=== PATIENT | male | born 1970 | race African-American/Black ===

== ENCOUNTER 2022-10-09 13:37 | Outpatient (REF) | payer MEDICARE, MEDICAID, SELFPAY ==
--- NOTE | ~2022-10-09 | XR_ITS ---
EXAMINATION: XR ABDOMEN KUB CLINICAL INDICATION: Abdominal pain, predominantly left-sided. COMPARISON: None available. TECHNIQUE: AP view of the abdomen. FINDINGS: Thoracolumbar dextroscoliosis noted. Spondylitic changes seen at vertebral endplates. The bowel gas pattern is nonobstructive. Moderate colonic fecal material seen throughout the colon. There are no appreciable abnormal calcifications, particularly at the level of the kidneys as noted on this evaluation. There is some obscuration of the right renal shadow related to fecal densities. XR/XR KUB IMPRESSION: Nonobstructive bowel gas pattern without any definite evidence for free air. No distinct abnormal calcifications. If obstructive uropathy is a consideration, CT stone study could be helpful toward further evaluation.
== END 2022-10-09 13:38 | disposition home or self-care (01) ==
LOC: HO.HHCX 13:37
PROVIDERS: Visit Provider Student in an Organized Health Care Education/Training Program
DX: R10.9 Unspecified abdominal pain (principal)
CPT/HCPCS: 74018

== ENCOUNTER 2023-02-11 15:28 | Outpatient (REF) | payer MEDICARE, MEDICAID, SELFPAY ==
[2023-02-11 17:32] LABS: MANUAL DIFF FLAG NO
[2023-02-11 17:39] LABS: Appearance Urine Clear; Color Urine Yellow; Glucose Urine UA Negative (Negative); Leukocyte Esterase Urine Negative (Negative); Nitrite Urine Negative (Negative); PH 5.5 (5.0-9.0); Specific Gravity - Urine 1.025 (1.005-1.025); UMIC TRIGGER UA YES; Urine Blood Small (1+) (Negative); Urine Ketones Trace mg/dL (Negative); Urine Protein Trace mg/dL (Neg-Trace)
[2023-02-11 17:47] LABS: Bacteria Urine None Seen (None Seen); Hyaline Casts Urine 0-2 /LPF (0-2); Squamous Epithelial Cell Urine 0-2 /HPF (0-2); WBC Urine 0-5 /HPF (0-5)
[2023-02-11 17:56] LABS: Basophils Percent Auto 0.7 % (0-2); Eosinophils Absolute Auto 0.4 X10*3/uL (0.0-0.4); Eosinophils Percent Auto 7.3 % (0-4); Hematocrit 47.1 % (42.0-52.0); Hemoglobin 15.3 g/dl (14.0-18.0); Imm Gran Abs Auto 0.03 X10*3/uL (0.00-0.03); Imm Gran Pct Auto 0.5 % (0.0-0.4); Lymphocytes Absolute Auto 1.8 X10*3/uL (1.2-4.9); Lymphocytes Percent Auto 31.9 % (20-40); Mean Corpuscular HGB Conc 32.5 g/dl (31.0-36.0); Mean Corpuscular Hemoglobin 30.2 pg (27.0-33.0); Mean Corpuscular Volume 93.1 fL (80.0-98.0); Mean Platelet Volume 10.9 fL (9.4-12.4); Monocytes Absolute Auto 0.7 X10*3/uL (0.1-1.2); Neutrophils Absolute Auto 2.7 x10*3/uL (2.0-8.3); Neutrophils Percent Auto 47.6 % (45-73); Platelet Count 295 X10*3/uL (160-400); Red Blood Count 5.06 X10*6/uL (4.60-5.80); Red Cell Distribution Width 13.9 % (11.0-16.0); White Blood Count 5.8 X10*3/uL (4.8-10.8)
[2023-02-11 18:11] LABS: Anion Gap 16 (12-20); Blood Urea Nitrogen 11 mg/dL (9-16); Calcium 10.4 mg/dL (8.4-10.2); Carbon Dioxide 28 mmol/L (22-29); Chloride 104 mmol/L (96-108); Estimated Glomerular Filt Rate > 60; Glucose Random 98 mg/dL (60-115); Potassium 4.4 mmol/L (3.3-5.1); Sodium 144 mmol/L (135-145)
[2023-02-11 18:27] LABS: Vitamin D 25-OH Total 22.5 ng/mL (>30)
[2023-02-11 18:28] LABS: Prostate Specific Antigen 0.53 ng/mL (<0.05-4.0)
[2023-02-12 08:24] LABS: HBS Num1 1.02 mIU/mL (0-7.99); HBc Num1 0.17 S/CO (0.00-0.79); HBsAGNum1 0.37 S/CO (0.00-0.99); Hepatitis A Antibody IgM 0.17 Index (0-0.79); Hepatitis B Core Antibody Nonreactive (Nonreactive); Hepatitis B Surface Antigen Negative (Negative); ~HepC Num1 0.23 S/CO (0.00-0.79); ~Hepatitis A Antibody IgM Nonreactive (Nonreactive); ~Hepatitis B Surface Antibody NONREACTIVE (Nonreactive); ~Hepatitis C Antibody Nonreactive (Nonreactive)
== END 2023-02-11 15:29 | disposition home or self-care (01) ==
LOC: HO.CHCLDS 15:28
PROVIDERS: Visit Provider Internal Medicine
DX: Z12.5 Encounter for screening for malignant neoplasm of prostate (principal); R10.2 Pelvic and perineal pain; E66.01 Morbid (severe) obesity due to excess calories; E78.5 Hyperlipidemia, unspecified; I10 Essential (primary) hypertension
CPT/HCPCS: 36415; 80048; 81001; 82306; 84153; 85025; 86704; 86706; 86709; 86803; 87340

== ENCOUNTER 2023-02-13 11:21 | Outpatient (REF) | payer MEDICARE, MEDICAID, SELFPAY ==
[2023-02-13 14:25] LABS: Urine Cytology See Pathology rpt
== END 2023-02-13 11:22 | disposition home or self-care (01) ==
LOC: HO.CHCLDS 11:21
PROVIDERS: Visit Provider Internal Medicine
DX: R31.29 Other microscopic hematuria (principal)
CPT/HCPCS: 87086; 88112

== ENCOUNTER 2023-02-26 09:49 | Outpatient (REF) | payer MEDICARE, MEDICAID, SELFPAY ==
--- NOTE | ~2023-02-26 | US_ITS ---
EXAMINATION: US RETROPERITONEAL LIMITED (RENAL ONLY) CLINICAL INFORMATION: Microscopic hematuria. COMPARISON: X-ray abdomen KUB 10/09/2022. TECHNIQUE: Real-time imaging of the kidneys. Limited visualization due to bowel gas. FINDINGS: RIGHT KIDNEY: 10.3 x 5.7 x 5.5 cm (SAG x AP x TRV). No hydronephrosis. Renal cortical thickness is normal. Right renal midpole 0.9 cm non-shadowing echogenic focus, possibly representing a renal calculus. Right renal 0.8 x 0.8 x 0.9 cm hyperechoic, non-shadowing mass, possibly representing an angiomyolipoma. Limited visualization. LEFT KIDNEY: 11.0 x 6.8 x 6.5 cm (SAG x AP x TRV). No hydronephrosis. No renal calculi. Renal cortical thickness is normal. Limited visualization. US/US renal BI IMPRESSION: Right renal midpole 0.9 cm non-shadowing echogenic focus, possibly representing a renal calculus. No hydronephrosis. Right renal 0.9 cm hyperechoic, non-shadowing mass, possibly representing an angiomyolipoma. Dedicated CT scan with images obtained precontrast and postcontrast administration recommended for further evaluation.
== END 2023-02-26 09:50 | disposition home or self-care (01) ==
LOC: HO.US 09:49
PROVIDERS: PCP Internal Medicine; Visit Provider Internal Medicine
DX: R31.29 Other microscopic hematuria (principal)
CPT/HCPCS: 76775

== ENCOUNTER 2023-04-11 08:19 | Outpatient (REF) | payer MEDICARE, MEDICAID, SELFPAY ==
--- NOTE | ~2023-04-11 | CT_ITS ---
EXAMINATION: CT ABDOMEN AND PELVIS WITHOUT AND WITH CONTRAST CLINICAL INFORMATION: Renal mass. COMPARISON: Renal ultrasound 02/26/2023. TECHNIQUE: Multidetector volumetric imaging was performed of the abdomen and pelvis before and after the IV administration of 85 mL of Omnipaque 350 intravenous contrast. Sagittal and coronal reformatted images were obtained on the technologist's workstation. This CT examination was performed using dose optimization techniques as appropriate, variously including the following: *Automated exposure control *Adjustment of mA and/or kV according to patient size (this includes techniques or standardized protocols for targeted exams where dose is matched to indication/reason for exam; i.e. extremities or head) *Use of iterative reconstruction technique DLP: 642 mGy-cm FINDINGS: LUNG BASES: The visualized lung bases are unremarkable. LIVER, GALLBLADDER, AND BILIARY TREE: The liver is normal in size, shape, and attenuation. No focal hepatic lesion or biliary ductal dilatation is present. The gallbladder is unremarkable with no evidence of radiopaque gallstones, gallbladder wall thickening, or obvious pericholecystic inflammatory changes. PANCREAS: No discrete mass. No ductal dilatation. SPLEEN: Unremarkable ADRENAL GLANDS: No adrenal mass. KIDNEYS AND URETERS: 2 mm nonobstructing calculus lower pole right kidney 8.2 cm from posterolateral skin surface. Probable punctate calculus in the upper pole right kidney as well. No definite calculi in the left kidney. Nephrograms are symmetric. No hydroureteronephrosis. There is no focal mass to correlate with the finding on recent ultrasound. This may have been a prominent papilla. There is a tiny cyst in the lower pole right kidney for which no imaging follow-up is recommended. BLADDER: Question small mass midline bladder over the prostate. GASTROINTESTINAL TRACT: Small and large bowel are normal in caliber. The appendix appears normal. Mild colonic diverticulosis. ABDOMINAL WALL: No significant hernia is appreciated. LYMPH NODES: No lymphadenopathy. VASCULAR: No aortic aneurysm. PELVIC VISCERA: The prostate measures 4.1 x 2.5 x 3.4 cm, approximately 17 mL. Question median lobe hypertrophy. OSSEOUS STRUCTURES: Degenerative changes in the spine. CT/CT abdomen pelvis wo/w IV con IMPRESSION: No suspicious renal mass. The finding on recent ultrasound was likely a visually prominent renal papilla. Nonobstructing right renal calculi. No hydroureteronephrosis. Questionable 1 cm posterior bladder mass could represent median hypertrophy of the prostate however the rest of the prostate gland is not enlarged and total prostate volume is less than 25 mL. Recommend cystoscopy to exclude a true bladder wall mass. Fleischner guidelines were followed.
[2023-04-11] MEDS: iohexoL 350 MG/ML 100 ML INFUS..BTL 85 ML IV (08:55)
[2023-04-11 12:57] LABS: Creatinine POC 0.6 mg/dL (0.5-1.4); GFR POC > 60
== END 2023-04-11 08:20 | disposition home or self-care (01) ==
LOC: HO.CT 08:19
PROVIDERS: PCP Internal Medicine; Visit Provider Internal Medicine
DX: N28.89 Other specified disorders of kidney and ureter (principal)
CPT/HCPCS: 74178; 82565; Q9967

== ENCOUNTER 2024-06-11 14:19 | Outpatient (REF) | payer MEDICARE, MEDICAID, SELFPAY ==
[2024-06-11 17:56] LABS: Anion Gap 12 (12-20); Blood Urea Nitrogen 16 mg/dL (9-16); Calcium 9.6 mg/dL (8.4-10.2); Carbon Dioxide 24 mmol/L (22-29); Chloride 107 mmol/L (96-108); Estimated Glomerular Filt Rate > 60; Glucose Random 96 mg/dL (60-115); Potassium 3.8 mmol/L (3.3-5.1); Sodium 139 mmol/L (135-145)
--- OUTSIDE RECORDS SUMMARY | 2024-06-11 18:10 | XMS_ITS | Clinical Summary ---
Author Organization [employer] Address [address] [facility] [address] [place] [address] Care Team Providers Care Clipper Counters Name Role Phone Manny Shankar MD Primary Care Prov ider Allergies No known active allergies Medications sucralfate (Carafate) 1 g tablet Take 1 tablet (1 g) by mouth every 8 (eight) hours. 120 tablet 3 09/04/19 23 Active tadalafil (Cialis) 10 MG tablet Take 1 tablet (10 mg) by mouth if needed each day for erectile dysfunction. 10 tablet 1 09/04/19 23 Active nicotine (Nicoderm CQ) 21 MG/24HR patchIndications :Nicotine use Place 1 patch on the skin 1 (one) time each day at the same time for 28 days. 28 patch 09/04/19 23 Active fexofenadine (Melonie) 180 MG tablet Take 1 tablet (180 mg) by mouth if needed each day (Allergies). 30 tablet 3 02/12/20 23 Active fluticasone (Flonase) 50 MCG/ACT nasal sprayIndications :Seasonal allergies ADMINISTER 1 TO 2 SPRAY INTO EACH NOSTRIL IN THE MORNING 48 mL 1 03/05/20 23 Active Varenicline Tartrate, Starter, 0.5 MG X 11 & 1 MG X 42 tablet therapy pack Take 0.5 mg by mouth 2 times daily. 56 each 04/29/20 23 Active Diclofenac Sodium 1 % gelIndications:M edial epicondylitis of left elbow To apply to the affected area 3 times a day 100 g 2 10/01/19 24 Active cyclobenzaprine (Flexeril) 10 MG tabletIndication s:Medial epicondylitis of left elbow Take 1 tablet (10 mg) by mouth at bedtime for 10 days. 10 tablet 10/01/19 24 Active pantoprazole (ProtoNix) 40 MG EC tablet Take 1 tablet (40 mg) by mouth before breakfast. 90 tablet 1 10/01/19 24 Active sertraline (Zoloft) 100 MG tabletIndication s:Recurrent major depressive disorder, in partial remission (CMS/HCC) Take 1 tablet (100 mg) by mouth Once per day. 90 tablet 3 10/01/19 24 2024 Active losartan (Cozaar) 100 MG tabletIndication s:Primary hypertension Take 1 tablet (100 mg) by mouth at bedtime. 90 tablet 3 11/21/19 24 2024 Active amLODIPine (Norvasc) 10 MG tabletIndication s:Primary hypertension,Ess ential hypertension Take 1 tablet (10 mg) by mouth in the morning. 90 tablet 1 11/21/19 24 Active sildenafil (Viagra) 50 MG tablet Take 1 tablet (50 mg) by mouth if needed each day for erectile dysfunction. 10 tablet 11/21/19 24 Active Blood Pressure kit 1 kit Once per day. 1 kit 11/21/19 24 Active hydrOXYzine pamoate (Vistaril) 25 MG capsuleIndicatio ns:Mood disorder (CMS/HCC) TAKE 1 CAPSULE (25 MG) BY MOUTH EVERY 8 (EIGHT) HOURS IF NEEDED FOR ITCHING OR ANXIETY. 270 capsule 1 02/13/20 24 Active cloNIDine (Catapres) 0.3 MG tabletIndication s:Essential hypertension,Moo d disorder (CMS/HCC),Essent ial hypertension TAKE 1 TABLET (0.3 MG) BY MOUTH 2 TIMES DAILY. 180 tablet 3 02/14/20 24 Active tamsulosin (Flomax) 0.4 MG 24 hr capsuleIndicatio ns:Pelvic pain in male Take 1 capsule (0.4 mg) by mouth Once per day. 30 capsule 3 06/04/19 25 Active ibuprofen 400 MG tablet Take 1 tablet (400 mg) by mouth if needed each day for moderate pain. Take with food. 30 tablet 06/04/19 25 Active tamsulosin (Flomax) 0.4 MG 24 hr capsuleIndicatio ns:Pelvic pain in male Take 1 capsule (0.4 mg) by mouth Once per day. 30 capsule 3 10/01/19 24 2024 Discontinued(R eorder (will not trigger notification to Pharmacy)) ibuprofen 800 MG tablet Take 1 tablet (800 mg) by mouth if needed in the morning, at noon, and at bedtime for mild pain. Take with food. 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, complains of nose scabs, and perforation, will place ent referal Sleep concern 04/29/2023 Assessment & Plan (04/29/2023 8:51 PM EST): Patient with loud snoring, middle of night choking sensation, unrefreshed sleep, will refer for sleep stuy Essential hypertension 09/17/2018 Assessment & Plan (11/21/2023 11:40 AM EDT): Uncontrolled, will increase losartan to 100mg, he did not brought a bp log, will follow up in 1 month Labs ordered not done Hyperlipidemia 09/17/2018 Mood disorder 09/17/2018 Encounters Date Type Department Care Team Description 06/04/2024 3:40 PM EST Office Visit [facility] [address] [place] [address] Marii Marrero MD Urinary retention (Primary Dx); Dysuria; Primary hypertension; Pelvic pain in male; Chronic back pain, unspecified back location, unspecified back pain laterality 06/04/2024 Travel 06/04/2024 Telephone [facility] [address] [place] [address] Manny Shankar MD Nurse Triage from Last 3 Months Immunizations Name Administration Dates Next Due Influenza, IIV3, injectable 03/15/2017 Td (adult), unspecified 04/28/2010 Tdap 08/10/2019,07/19/2009 Social History Tobacco Use Types Packs/Day Years Used Date Smoking Tobacco: Every Day Cigarettes Smokeless Tobacco: Never Tobacco Cessation:Ready to Q uit: Not Asked; Counseling Given: Not Answered Depression Answer Date Recorded Patient Health Questionnaire-9 Score 0 04/29/2023 Patient Health Questionnaire-9 Score 0 04/29/2023 Last PHQ-9: Questionnaire Data Not on file 1 06/30/2022 Housing Stability Answer Date Recorded What is your housing situation today? I have aroldo jignesh 04/29/[address] you li ve. Do you have problems with any of the following? None of the above 04/29/2023 Food Insecurity Answer Date Recorded Within the past 12 months, y ou worried that your food would run out before you got money to buy more: Never True 04/29/2023 Within the past 12 months,th e food you bought just didn't last and you didn't have enough money to get more: Never True Transportation Answer Date Recorded In the past 12 months, has l ack of transportation kept you from medical appts, meetings, work or from getting things needed for daily living? No 04/29/2023 Utilities Answer Date Recorded In the past 12 months, has t he electric, gas, oil or water company threatened to shut off services in your home? No 04/29/2023 Depression Answer Date Recorded Patient Health Questionnaire-2 Score 0 04/29/2023 Sex and Gender Information Value Date Recorded Sex Assigned at Male 03/12/2022 10:21 AM EDT Legal Sex Male 10:21 AM EDT Gender Identity Male 09/28/2023 1:08 AM EDT Sexual Orientation Straight 09/28/2023 1: 08 AM EDT Last Filed Vital Signs Vital Sign Reading Time Taken Comments Blood Pressure 174/92 06/04/2024 4:03 PM EST Pulse 84 06/04/2024 4:03 PM EST Temperature 36.7 ??C (98.1 ??F) 06/04/2024 4:03 PM ES T Respiratory Rate 20 06/04/2024 4:03 PM EST Oxygen Saturation 98% 06/04/2024 4:03 PM EST Inhaled Oxygen Concentration - - Weight 97.4 kg (214 lb 12.8 oz) 06/04/2024 4:03 PM EST Height 175.3 cm (5' 9 ) 06/04/2024 4:03 PM EST Body Mass Index 31.72 06/04/2024 4:03 PM EST Plan of Treatment Upcoming Encounters Date Type Department Care Team (Late st Contact Info) Description 06/18/2024 10:15 AM EST Office Visit [facility] MED & PEDS [address] [place] [address] Manny Shankar MD [address] [place] [address] Health Maintenance Due Date Last Done Comments CT Colonography 1970 Colonoscopy 1970 Dental Oral Exam 1970 Dental Prophylaxis 1970 Dental X-Ray: Bitewings 1970 Dental X-Ray: Full Mouth 1970 FIT 1970 FOBT 1970 Sigmoidoscopy 1970 Pneumococcal Vaccine: Pediatrics (0 to 5 Years) and At-Risk Patients (6 to 49) Years) (1 of 2 - PCV) 1976 Alcohol/Substance Use Screening 1982 Hepatitis B Vaccines (1 of 3 - 19+ 3-dose series) 1989 Pneumococcal Vaccine: 50+ Years (1 of 2 - PCV) 1989 Zoster Vaccines (1 of 2) 2020 COVID-19 Vaccine (3 - 2023-2 5 season) 2024 06/27/2021, 05/28/2021 Influenza Vaccine (#1) 2024 03/15/2017 Depression Screening 04/29/2024 04/29/2023, 04/29/2023 SDOH Screening 04/29/2024 04/29/2023 Tobacco Screening 11/20/2024 11/21/2023 Lipid Panel 03/28/2025 03/28/2020 Colorectal Cancer Screening 02/19/2026 FIT DNA/Cologuard 02/19/2026 02/19/2023 DTaP/Tdap/Td Vaccines (4 - T d or Tdap) 08/09/2029 08/10/2019, 04/28/2010, 07/19/2009 RSV Patients and Patients Aged 60 years or older (1 - 1-dose 75+ series) 2045 HIV Screening Completed 03/28/2020 Hepatitis C Screening Completed 02/11/2023 , 03/28/2020 HIB Vaccines Aged Out No longer eligi ble based on patient's age to complete this topic HPV Vaccines Aged Out No longer eligi ble based on patient's age to complete this topic Hepatitis A Vaccines Aged Out No long er eligible based on patient's age to complete this topic IPV Vaccines Aged Out No longer eligi ble based on patient's age to complete this topic Meningococcal Vaccine Aged Out No pal melvi eligible based on patient's age to complete this topic RSV under 20 months Aged Out No longe r eligible based on patient's age to complete this topic Rotavirus Vaccines Aged Out No longer eligible based on patient's age to complete this topic Procedures Procedure Name Priority Date/Time Associated Diagnosis Comments BASIC METABOLIC PANEL Routine 06/11/2024 2:20 PM EST Urinary retention POCT URINALYSIS DIPSTICK Routine 06/04/2024 4:33 PM EST Dysuria LAB COLOGUARD?? COLON CANCER SCREEN Routine 02/19/2023 2:00 PM EDT Encounter for screening colonoscopy HEPATITIS PANEL, GENERAL Routine 02/11/2023 3:35 PM EDT HIV 1/2 ANTIGEN/ANTIBODY, FOURTH GENERATION W/RFL Routine 03/28/2020 11:27 AM EST LIPID PANEL, STANDARD Routine 03/28/2020 11:27 AM EST from Last 3 Months or Most Recently Relevant to Health Maintenance Results * Basic Metabolic Panel (06/11/2024 2:20 PM EST) Sodium 139 135 - 145 mmol/L [facility] Potassium 3.8 3.3 - 5.1 mmol/L [facility] Chloride 107 96 - 108 mmol/L [facility] Carbon Dioxide 24 22 - 29 mmol/L [facility] Anion Gap 12 12 - 20 [facility] Urea Nitrogen (BUN) 16 9 - 16 mg/dL [facility] Creatinine, Serum 0.89 0.5 - 1.4 mg/dL [facility] Estimated Glomerular Filt Rate >60 [facility] Comment:Chronic Kidney Disea se: Estimated GFR < 60 mL/min/1.03x9Xjvehz Kidney Disease: Estimated GFR < 15 mL/min/1.73m2 Glucose 96 60 - 115 mg/dL [facility] Calcium 9.6 8.4 - 10.2 mg/dL [facility] Blood Venous blood specimen / Unknown 06/11/2024 2:20 PM EST 06/11/2024 5:34 PM EST Marii Marrero MD LAB BLOOD ORDERABLES Final Re sult [facility] [address] [place] [phone] * (ABNORMAL) POCT Urinalysis (06/04/2024 4:33 PM EST) Color, UA Yellow Clarity, UA Clear Glucose, UA Negative Bilirubin, UA Trace Comment:small Ketones, UA Positive Comment:trace Spec Grav, UA 1.030 Blood, UA Positive(A) Negative, None Detected Comment:small pH, UA 6.0 Protein, UA 2+ 125++ Urobilinogen, UA 0.2 Leukocytes, UA Negative Negative, Rare, Trace Nitrite, UA Negative Negative, None Detected Appearance, UA clear QC Media Lot # [id number] Lot# Expiration Date Urine 06/04/2024 4:33 PM EST Marii Marrero MD POINT OF CARE TEST ENTER/EDIT ORDERABLES Final Result * Cologuard?? colon cancer screening (02/19/2023 2:00 PM EDT) Cologuard Result Negative Negative 02/29/20 23 4:38 AM EDT [facility] (CLIA #:[id number]) Comment: NEGATIVE TEST RESULT. A negative Cologuard result indicates a low likelihood that a colorectal cancer (CRC) or advanced adenoma (adenomatous polyps with more advanced pre-malignant features) ??is present. The chance that a person with a negative Cologuard test has a colorectal cancer is less than 1 in 1500 (negative predictive value >99.9%) or has an ??advanced adenoma is less than ??5.3% (negative predictive value 94.7%). These data are based on a prospective cross-sectional study of 10,000 individuals at average risk for colorectal cancer who were screened with both Cologuard and colonoscopy. (Suzette Ford al, N Engl J Med 2014;370(14):1286- 1297) The normal value (reference range) for this assay is negative. COLOGUARD RE-SCREENING RECOMMENDATION: Periodic colorectal cancer screening is an important part of preventive healthcare for asymptomatic individuals at average risk for colorectal cancer. ??Following a negative Cologuard result, the [place] Cancer Society and U.S. Multi-Society Task Force screening guidelines recommend a Cologuard re-screening interval of 3 years. References: [place] Cancer Society Guideline for Colorectal Cancer Screening: https://www.cancer.org/cancer/mlzeh-koqyjy-mqmodz/accqisyfr-uldykkefn-qunknqh/ac s-rec ommendations.html.; Poli DK, Jena CR, Cayden WalkerK, Colorectal Cancer Screening: Recommendations for Physicians and Patients from the U.S. Multi-Society Task Force on Colorectal Cancer Screening , Am J Gastroenterology 2017; 112:8806-9126. TEST DESCRIPTION: Composite algorithmic analysis of stool DNA-biomarkers with hemoglobin immunoassay. ?? Quantitative values of individual biomarkers are not reportable and are not associated with individual biomarker result reference ranges. Cologuard is intended for colorectal cancer screening of adults of either sex, 45 years or older, who are at average-risk for colorectal cancer (CRC). Cologuard has been approved for use by the U.S. FDA. The performance of Cologuard was established in a cross sectional study of average-risk adults aged 50-84. Cologuard performance in patients ages 45 to 49 years was estimated by sub-group analysis of near-age groups. Colonoscopies performed for a positive result may find as the most clinically significant lesion: colorectal cancer [4.0%], advanced adenoma (including sessile serrated polyps greater than or equal to 1cm diameter) [20%] or non- advanced adenoma [31%]; or no colorectal neoplasia [45%]. These estimates are derived from a prospective cross-sectional screening study of 10,000 individuals at average risk for colorectal cancer who were screened with both Cologuard and colonoscopy. (Suztete Ford al, N Engl J Med 2014;370(14):1240-3916.) Cologuard may produce a false negative or false positive result (no colorectal cancer or precancerous polyp present at colonoscopy follow up). A negative Cologuard test result does not guarantee the absence of CRC or advanced adenoma (pre-cancer). The current Cologuard screening interval is every 3 years. ([place] Cancer Society and U.S. Multi-Society Task Force). Cologuard performance data in a 10,000 patient pivotal study using colonoscopy as the reference method can be accessed at the following location: www.Twitt2go.[employer]/results. Additional description of the Cologuard test process, warnings and precautions can be found at www.Vindiciaoguard.com. Stool specimen (specimen) 02/19/2023 2:00 PM EDT 02/22/2023 5:30 PM EDT Alexa Leiva MD LAB MOLECULAR DIAGNOSTICS O RDERABLES Final Result [facility] (CLIA #:[id number]) [place] [address], * Hepatitis Panel, General (02/11/2023 3:35 PM EDT) Hepatitis A IgM Nonreactive Nonreactive [facility] Comment:IgM antibodies to LI V not detected; does not exclude earlyacute or recovered HAV infection. ~Hepatitis B Surface Antibody NONREACTIVE Nonreactive [facility] Comment:Nonreactive: < 8.00 mIU/mL Hepatitis B Core Antibody Nonreactive Nonreactive [facility] Hepatitis C Antibody Nonreactive Nonreactive [facility] Comment:Antibodies to HCV no t detected; does not exclude early acuteHCV infection. Hepatitis B Surface Ag Negative Negative [facility] 02/11/2023 3:35 PM EDT 02/11/2023 5:29 PM EDT us Alexa Leiva MD LAB BLOOD ORDERABLES Final Result [facility] [address] [place] [phone] * HIV 1/2 ANTIGEN/ANTIBODY,FOURTH GENERATION W/RFL (03/28/2020 11:27 AM EST) HIV-1/2 ANTIGEN AND ANTIBODIES, 4TH GENERATION W/ REFLEX NON-REACT [facility] NON-REACT [facility] Comment: HIV-1 antigen and HIV-1/HIV-2 antibodies were not detected. There is no laboratory evidence of HIV infection. ?? PLEASE NOTE: This information has been disclosed to you from records whose confidentiality may be protected by state law. ??If your state requires such protection, then the state law prohibits you from making any further disclosure of the information without the specific written consent of the person to whom it pertains, or as otherwise permitted by law. A general authorization for the release of medical or other information is NOT sufficient for this purpose. ? For additional information please refer to http://education.KeepIdeas.[employer]/faq/GBE635 (This link is being provided for informational/ educational purposes only.) ? The performance of this assay has not been clinically validated in patients less than 2 years old. ?? HIV-1/2 ANTIGEN AND ANTIBODIES, 4TH GENERATION W/ REFLEX NON-REACT [facility] NON-REACT [facility] Comment: HIV-1 antigen and HIV-1/HIV-2 antibodies were not detected. There is no laboratory evidence of HIV infection. ?? PLEASE NOTE: This information has been disclosed to you from records whose confidentiality may be protected by state law. ??If your state requires such protection, then the state law prohibits you from making any further disclosure of the information without the specific written consent of the person to whom it pertains, or as otherwise permitted by law. A general authorization for the release of medical or other information is NOT sufficient for this purpose. ? For additional information please refer to http://Project Dance.[employer]/faq/YIP814 (This link is being provided for informational/ educational purposes only.) ? The performance of this assay has not been clinically validated in patients less than 2 years old. ?? HIV-1/2 ANTIGEN AND ANTIBODIES, 4TH GENERATION W/ REFLEX NON-REACT [facility]NA NON-REACT [facility] Comment: HIV-1 antigen and HIV-1/HIV-2 antibodies were not detected. There is no laboratory evidence of HIV infection. ?? PLEASE NOTE: This information has been disclosed to you from records whose confidentiality may be protected by state law. ??If your state requires such protection, then the state law prohibits you from making any further disclosure of the information without the specific written consent of the person to whom it pertains, or as otherwise permitted by law. A general authorization for the release of medical or other information is NOT sufficient for this purpose. ? For additional information please refer to http://[employer] Dance.[employer]/faq/XLG460 (This link is being provided for informational/ educational purposes only.) ? The performance of this assay has not been clinically validated in patients less than 2 years old. ?? 03/28/2020 11:2 7 AM EST us Manny Champion MD LAB BLOOD ORDERABL ES Final Result [facility] [address] * LIPID PANEL, STANDARD (03/28/2020 11:27 AM EST) Cholesterol, Total 155 <200 mg/dL [facility] Triglycerides 128 <150 mg/dL [facility] LDL Cholesterol 90 mg/dL (calc) [facility] Comment: Reference range: <100 ?? Desirable range <100 mg/dL for primary prevention; ?? <70 mg/dL for patients with CHD or diabetic patients ?? with > or = 2 CHD risk factors. ?? LDL-C is now calculated using the Kai-Gonzalez ?? calculation, which is a validated novel method providing ?? better accuracy than the Friedewald equation in the ?? estimation of LDL-C. ?? Kai AGUILA et al. ASIA. 2013;310(19): 0439-6094 ?? (http://[employer] Dance.[employer]/faq/PZJ660) Chol/HDLC Ratio 3.6 <5.0 (calc) [facility] Cholesterol, Total 155 <200 mg/dL [facility] Chol/HDLC Ratio 3.6 <5.0 (calc) [facility] HDL Cholesterol 43 > OR = 40 mg/dL [facility] Triglycerides 128 <150 mg/dL [facility] LDL Cholesterol 90 mg/dL (calc) [facility] Comment: Reference range: <100 ?? Desirable range <100 mg/dL for primary prevention; ?? <70 mg/dL for patients with CHD or diabetic patients ?? with > or = 2 CHD risk factors. ?? LDL-C is now calculated using the Kai-Gonzalez ?? calculation, which is a validated novel method providing ?? better accuracy than the Friedewald equation in the ?? estimation of LDL-C. ?? Kai AGUILA et al. ASIA. 2013;310(19): 5872-9107 ?? (http://[employer]estar/faq/IXC885) Non-HDL Cholesterol 112 <130 mg/dL (calc) [facility] Comment: For patients with diabetes plus 1 major ASCVD risk ?? factor, treating to a non-HDL-C goal of <100 mg/dL ?? (LDL-C of <70 mg/dL) is considered a therapeutic ?? option. Cholesterol, Total 155 <200 mg/dL [facility] LDL Cholesterol 90 mg/dL (calc) [facility] Comment: Reference range: <100 ?? Desirable range <100 mg/dL for primary prevention; ?? <70 mg/dL for patients with CHD or diabetic patients ?? with > or = 2 CHD risk factors. ?? LDL-C is now calculated using the Kai-Gonzalez ?? calculation, which is a validated novel method providing ?? better accuracy than the Friedewald equation in the ?? estimation of LDL-C. ?? Kai AGUILA et al. ASIA. 2013;310(19): 3189-0264 ?? (http://[employer]/faq/PNG975) Non-HDL Cholesterol 112 <130 mg/dL (calc) [facility] Comment: For patients with diabetes plus 1 major ASCVD risk ?? factor, treating to a non-HDL-C goal of <100 mg/dL ?? (LDL-C of <70 mg/dL) is considered a therapeutic ?? option. HDL Cholesterol 43 > OR = 40 mg/dL [facility] Non-HDL Cholesterol 112 <130 mg/dL (calc) [facility] Comment: For patients with diabetes plus 1 major ASCVD risk ?? factor, treating to a non-HDL-C goal of <100 mg/dL ?? (LDL-C of <70 mg/dL) is considered a therapeutic ?? option. Triglycerides 128 <150 mg/dL [facility] HDL Cholesterol 43 > OR = 40 mg/dL [facility] Triglycerides 128 <150 mg/dL [facility] Chol/HDLC Ratio 3.6 <5.0 (calc) [facility] LDL Cholesterol 90 mg/dL (calc) [facility] Comment: Reference range: <100 ?? Desirable range <100 mg/dL for primary prevention; ?? <70 mg/dL for patients with CHD or diabetic patients ?? with > or = 2 CHD risk factors. ?? LDL-C is now calculated using the Kai-Gonzalez ?? calculation, which is a validated novel method providing ?? better accuracy than the Friedewald equation in the ?? estimation of LDL-C. ?? Kai AGUILA et al. ASIA. 2013;310(19): 3128-5587 ?? (http://Project Dance.[email or web address]/faq/OUM631) Cholesterol, Total 155 <200 mg/dL [facility] Chol/HDLC Ratio 3.6 <5.0 (calc) [facility] HDL Cholesterol 43 > OR = 40 mg/dL [facility] Non-HDL Cholesterol 112 <130 mg/dL (calc) [facility] Comment: For patients with diabetes plus 1 major ASCVD risk ?? factor, treating to a non-HDL-C goal of <100 mg/dL ?? (LDL-C of <70 mg/dL) is considered a therapeutic ?? option. 03/28/2020 11:2 7 AM EST Manny Champion MD LAB BLOOD ORDERABL ES Final Result [facility] [address] [place] [address], from Last 3 Months or Most Recently Relevant to Health Maintenance Insurance [employer] PPO [facility] STANDARD DENTAL - [employer] [place] STAND AD[place] Care Teams Clipper Counters Relationship Specialty Start Date End Date Manny Shankar MD [address] [place] [phone] PCP - General Internal Medicine 10/11/19
--- OUTSIDE RECORDS SUMMARY | 2024-06-11 18:10 | XMS_ITS | Encounter Summary ---
Author Organization [employer] Address [address] [facility] [address] [place] [address] Care Team Providers Care Legal Administrative Assistant Name Role Phone Manny Shankar MD Primary Care Prov ider Encounter Details Date Type Department Care Team (Latest Contact Info) Description 06/04/2024 Travel Social History Tobacco Use Types Packs/Day Years Used Date Smoking Tobacco: Every Day Cigarettes Smokeless Tobacco: Never Depression Answer Date Recorded Patient Health Questionnaire-9 Score 0 04/29/2023 Patient Health Questionnaire-9 Score 0 04/29/2023 Last PHQ-9: Questionnaire Data Not on file 1 06/30/2022 Housing Stability Answer Date Recorded What is your housing situation today? I have arodlo egan 04/29/[address] you li [...] Orientation Straight 09/28/2023 1: 08 AM EDT documented as of this encounter Plan of Treatment Upcoming Encounters Date Type Department Care Team (Late st Contact Info) Description 06/18/2024 10:15 AM EST Office Visit [facility] MED & PEDS [address] [place] [address] Manny Shankar MD [address] [place] [address] documented as of this encounter Visit Diagnoses Not on filedocumented in this encounter Additional Health Concerns Assessment Noted Time PHQ-9 Depression Total Score: 0 04/29/20 23 1:29 PM EST documented as of this encounter Care Teams Legal Administrative Assistant Relationship Specialty Start Date End Date Manny Shankar MD [address] [place] [address] PCP - General Internal Medicine 10/11/19 documented as of this encounter
--- OUTSIDE RECORDS SUMMARY | 2024-06-11 18:11 | XMS_ITS | Encounter Summary ---
Author Organization [employer] Address 75 [facility] 7 [place] [address] Care Team Providers Care Parachute Officer Name Role Phone Manny Shankar MD Primary Care Prov ider Reason for Visit * Reason Onset Date Comments Nurse Triage 06/04/2024 Encounter Details Date Type Department Care Team (Late st Contact Info) Description 06/04/2024 Telephone [facility] MEDICINE [address] [place] [address] Manny Shankar MD [address] [place] [address] Nurse Triage Social History Tobacco Use Types Packs/Day Years Used Date Smoking Tobacco: Every Day Cigarettes Smokeless Tobacco: Never Depression Answer Date Recorded Patient Health Questionnaire-9 Score 0 04/29/2023 Patient Health Questionnaire-9 Score 0 04/29/2023 Last PHQ-9: Questionnaire Data Not on file 1 06/30/2022 Housing Stability Answer Date Recorded What is your housing situation today? I have aroldo egan 04/29/[address] you [...] AM EDT documented as of this encounter Miscellaneous Notes * Telephone Encounter - Matilde Cr LPN - 06/04/2024 2:13 PM EST For approx. one month he has noted urinary frequency. Is up several times at night to void. Had some slight back pain last week. Has found that he has poor stream of urine and though he feels he empties his bladder has to void again soon. NO foul odor no fever no blood or pus in urine. Reports thathe did have a bladder mass removed about a year prior and that he had his follow up with Urology after that with no further concerns. Disposition reviewed and patient in agreement with plan. ASK/CHC/SDC today with at 340 pm Protocol Used: Urinary Symptoms (Adult) Protocol-Based Disposition: See in Office or Video Visit Today Video visit not offered Positive Triage Question: * Urinating more frequently than usual (i.e., frequency) OR new-onset of the feeling of an urgent need to urinate (i.e., urgency) * All higher-acuity triage questions were negative Care Advice Discussed: * Reasons To Call Back - Fever occurs - Pain or burning with urination - Unable to urinate and bladder feels full - You become worse * Telephone Encounter - Salomón Valle - 06/04/2024 2:02 PM EST Symptom: Urine Symptoms Outcome: Schedule an urgent appointment (within 4 hours) or talk to a nurse or provider soon Reason: Pain when passing urine (peeing) The caller accepted this outcome. documented in this encounter Plan of Treatment Upcoming Encounters Date Type Department Care Team ([facility] st Contact Info) Description 06/18/2024 10:15 AM EST Office Visit [facility] MED & PEDS [address] [place] [address] Manny Shankar MD [address] [place] [address] documented as of this encounter Visit Diagnoses Not on filedocumented in this encounter Additional Health Concerns Assessment Noted Time PHQ-9 Depression Total Score: 0 04/29/20 23 1:29 PM EST documented as of this encounter Care Teams Parachute Officer Relationship Specialty Start Date End Date Manny Shankar MD [address] [place] [address] PCP - General Internal Medicine 10/11/19 documented as of this encounter
--- OUTSIDE RECORDS SUMMARY | 2024-06-11 18:11 | XMS_ITS | Clinical Summary ---
Author Organization [facility] ity Address [address] [place] [address] Care Team Providers Care Booking Supervisor Name Role Phone Unavailable Primary Care Provider Unavailabl e Social History Tobacco Use Types Packs/Day Years Used Date Smoking Tobacco: Never Assessed Sex and Gender Information Value Date Recorded Sex Assigned at Not on file Gender Identity Not on file Sexual Orientation Not on file Plan of Treatment Health Maintenance Due Date Last Done Comments Hepatitis B Vaccines (1 of 3 - 19+ 3-dose series) 1989 DTaP,Tdap,and Td Vaccines (2 - Td or Tdap) 07/20/2019 07/19/2009 Zoster Vaccines (1 of 2) 2020 COVID-19 Vaccine (1 - 2023-2 5 season) 2024 Influenza Vaccine (#1) 2024 HIB Vaccines Aged Out No longer eligi [...] on patient's age to complete this topic MMR Vaccines Aged Out No longer eligi ble based on patient's age to complete this topic Meningococcal ACWY Vaccine Aged Out N o longer eligible based on patient's age to complete this topic Pneumococcal Vaccine: Pediat rics (0 to 5 Years) and At-Risk Patients (6 to 64 Years) Aged Out No longer eligi ble based on patient's age to complete this topic RSV Immunization Patients Un claudine 20 months Aged Out No longer eligible b ased on patient's age to complete this topic Varicella Vaccines Aged Out No longer eligible based on patient's age to complete this topic
--- OUTSIDE RECORDS SUMMARY | 2024-06-11 18:11 | XMS_ITS | Encounter Summary ---
Author Organization [employer] Address 75 [facility] 7t [place] [address] Care Team Providers Care Environmental Studies Program Director Name Role Phone Manny Shankar MD Primary Care Prov ider Encounter Details Date Type Department Care Team ([facility] st Contact Info) Description 06/04/2024 3:40 PM EST Office Visit [facility] MED & PEDS [address] [place], [place] [phone] Marii Marrero MD [address] [place] [address] Urinary retention (Primary Dx); Dysuria; Primary hypertension; Pelvic pain in male; Chronic back pain, unspecified back location, unspecified back pain laterality Social History Tobacco Use Types Packs/Day Years Used Date Smoking Tobacco: Every Day Cigarettes Smokeless Tobacco: Never Depression Answer Date Recorded Patient Health Questionnaire-9 Score 0 04/29/2023 Patient Health Questionnaire-9 Score 0 04/29/2023 Last PHQ-9: Questionnaire Data Not on file 1 06/30/2022 Housing Stability Answer Date Recorded What is your housing situation today? I have aroldo sing 04/29/[address] you li [...] AM EDT documented as of this encounter Last Filed Vital Signs Vital Sign Reading [...] Mass Index 31.72 06/04/2024 4:03 PM EST documented in this encounter Progress Notes * Marii Marrero MD - 06/04/2024 3:40 PM EST Subjective Patient ID: Eliseo Garcias is a 53 y.o. male who presents for difficulty urinating x 1 month. HPI Eliseo is a very pleasant 53 yo man with uncontrolled hypertension and a history of a bladder massthat was resected within the past 1.5 years. He was well until about 1 month when he started urinating smaller amounts and having to strain to urinate. Reports a weak stream and that it takes minutesfor him to empty his bladder. Also having nocturia such that he limits the amount he drinks at night to avoid going to the bathroom at night. No burning with urination or perineal pain. No excessive thirst. Takes clonidine at night intermittently for years for insomnia. Has mild constipation. Reports taking only one medication for high blood pressure and that his BP is always high. Reports chronic intermittent back pain for which he takes occasional ibuprofen 800 mg. Review of Systems Constitutional: Negative for chills and fever. Gastrointestinal: Positive for constipation. Negative for abdominal distention. Genitourinary: Positive for frequency and urgency. Negative for decreased urine volume, difficulty urinating, dysuria, flank pain, hematuria, penile discharge and testicular pain. Musculoskeletal: Positive for back pain. Objective BP (!) 174/92 (BP Location: Right arm, Patient Position: Sitting, BP Cuff Size: Large adult) Pulse 84 Temp 98.1 ??F (36.7 ??C) (Oral) Resp 20 Ht 5' 9 (1.753 m) Wt 214 lb 12.8 oz (97.4 kg) SpO2 98% BMI 31.72 kg/m?? Physical Exam Exam conducted with a answering service operator present. Constitutional: Appearance: He is normal weight. Abdominal: General: Abdomen is flat. Bowel sounds are normal. Palpations: Abdomen is soft. Tenderness: There is abdominal tenderness (mild, LLQ). Comments: No palpable bladder. Genitourinary: Prostate: Normal. Skin: General: Skin is warm and dry. Capillary Refill: Capillary refill takes less than 2 seconds. Neurological: General: No focal deficit present. Mental Status: He is alert. Psychiatric: Mood and Affect: Mood normal. Behavior: Behavior normal. Assessment/Plan Diagnoses and all orders for this visit: Urinary retention: Did not appreciate enlarged prostate on exam or palpable bladder. CT abdomen in 03/04 showed a normal sized prostate but with some medial lobe hypertrophy. His PSA around the same time was low at 0.53. He did have a bladder mass and I cannot find any info about it so he may be having a bladder outlet obstruction due to recurrence of the mass. His UA today shows small blood but no signs of infection. His CT in 03/04 shows 2 mm kidney stones. Will check renal function and PSA today. Put him on a trial of tamsulosin. Follow up with PCP in 2 weeks to re-evaluate. - tamsulosin (Flomax) 0.4 MG 24 hr capsule; Take 1 capsule (0.4 mg) by mouth Once per day. - Basic Metabolic Panel; Future - PSA, Total With Reflex to PSA, Free; Future - POCT Urinalysis Primary hypertension: Uncontrolled today and not clear that he is taking hsi medications as prescribed. Checking renal function and lytes as per above and will have him RTC for Dr. Verdugo to direct his attention there. Other orders Chronic back pain: 30-pill Rx for lower dose ibuprofen 400 mg once daily PRN moderate pain given inlight of HTN. - ibuprofen 400 MG tablet; Take 1 tablet (400 mg) by mouth if needed each day for moderate pain. Take with food. documented in this encounter Plan of Treatment Upcoming Encounters Date Type Department Care Team (Late st Contact Info) Description 06/18/2024 10:15 AM EST Office Visit [facility] MED & PEDS [address] [place], [place] [phone] Manny Shankar MD [address] [place], [place] [phone] Scheduled Orders Name Type Priority Associated Diagnoses Orde r Schedule PSA, Total With Reflex to PSA, Free Lab Routine Urinary retention Expected: 06/04/2024 (Approximate), Expires: 06/04/2025 documented as of this encounter Procedures Procedure Name Priority Date/Time Associated Diagnosis Comments BASIC METABOLIC PANEL Routine 06/11/2024 2:20 PM EST Urinary retention POCT URINALYSIS DIPSTICK Routine 06/04/2024 4:33 PM EST Dysuria documented in this encounter Results * Basic Metabolic Panel (06/11/2024 2:20 PM EST) Sodium 139 135 - 145 mmol/L [facility] Potassium 3.8 3.3 - 5.1 mmol/L [facility] Chloride 107 96 - 108 mmol/L [facility] Carbon Dioxide 24 22 - 29 mmol/L [facility] Anion Gap 12 12 - 20 [facility] Urea Nitrogen (BUN) 16 9 - 16 mg/dL [facility] Creatinine, Serum 0.89 0.5 - 1.4 mg/dL [facility] Estimated Glomerular Filt Rate >60 [facility] Comment:Chronic Kidney Disea se: Estimated GFR < 60 mL/min/1.04m8Auqjev Kidney Disease: Estimated GFR < 15 mL/min/1.73m2 Glucose 96 60 - 115 mg/dL [facility] Calcium 9.6 8.4 - 10.2 mg/dL [facility] Blood Venous blood specimen / Unknown 06/11/2024 2:20 PM EST 06/11/2024 5:34 PM EST Marii Marrero MD LAB BLOOD ORDERABLES Final Re sult [facility] [address] [place] [phone] * (ABNORMAL) POCT Urinalysis (06/04/2024 4:33 [...] OF CARE TEST ENTER/EDIT ORDERABLES Final Result documented in this encounter Visit Diagnoses Diagnosis Urinary retention- Primary Unspecified retention of urine Dysuria Primary hypertension Unspecified essential hypertension Pelvic pain in male Abdominal pain, other specified site Chronic back pain, unspecified back location, unspecified back pain laterality documented in this encounter Additional Health Concerns Assessment Noted Time PHQ-9 Depression Total Score: 0 04/29/20 23 1:29 PM EST documented as of this encounter Care Teams Environmental Studies Program Director Relationship Specialty Start Date End Date Verdugo Champion, Manny, MD [address] [place] [address] PCP - General Internal Medicine 10/11/19 documented as of this encounter
--- OUTSIDE RECORDS SUMMARY | 2024-06-11 18:11 | XMS_ITS | Encounter Summary ---
Author Organization [employer] Address [address] [facility] [address], [place] [address] Care Team Providers Care Sled Maker Name Role Phone Manny Shankar MD Primary Care Prov ider Reason for Referral * Imaging (Routine) - Closed Specialty Diagnoses / Procedures Referred By Contac t Referred To Contact Radiology Diagnoses Renal mass Procedures CT Abdomen w/ and w/o Contrast Alexa Leiva MD [address] [place] [address] Phone: tel: fax: [address] Phone: tel: fax: Referral ID Status Reason Start Date Expiration Date Visits Re quested Visits Authorized [id number] Closed 03/06/2023 03/05/2024 1 1 Encounter Details Date Type Department Care Team (Late st Contact Info) Description 03/01/2023 Orders Only [facility] MED & PEDS [address] [place] [address] Alexa Leiva MD [address] [place] [address] Renal mass (Primary Dx) Social History Tobacco Use Types Packs/Day Years Used Date Smoking Tobacco: Every Day Cigarettes Smokeless Tobacco: Never Sex and Gender Information Value Date Recorded Sex Assigned at Male 03/12/2022 10:21 AM EDT Legal Sex Male 10:21 AM EDT Gender Identity Male 09/28/2023 1:08 AM EDT Sexual Orientation Straight 09/28/2023 1: 08 AM EDT documented as of this encounter Plan of Treatment Upcoming Encounters Date Type Department Care Team (Late st Contact Info) Description 06/18/2024 10:15 AM EST Office Visit [facility] MED & PEDS [address] [place] [address] Manny Shankar MD [address] [place] [address] Scheduled Orders Name Type Priority Associated Diagnoses Orde r Schedule CT Abdomen w/ and w/o Contrast Imaging Routine Renal mass Expected: 03/06/2023, Expires: 03/06/2024 documented as of this encounter Visit Diagnoses Diagnosis Renal mass- Primary Unspecified disorder of kidney and ureter documented in this encounter Care Teams Sled Maker Relationship Specialty Start Date End Date Manny Shankar MD [address] [place] [address] PCP - General Internal Medicine 10/11/19 documented as of this encounter
--- OUTSIDE RECORDS SUMMARY | 2024-06-11 18:11 | XMS_ITS | Encounter Summary ---
Author Organization [employer] Address [address] [place] [address] Care Team Providers Care Regulator Inspector Name Role Phone Manny Shankar MD Primary Care Prov ider Reason for Visit * Reason Onset Date Comments triage 10/09/2022 Encounter Details Date Type Department Care Team (Late st Contact Info) Description 10/09/2022 Telephone [facility] MEDICINE [address] [place] [address] Manny Shankar MD [address] [place] [address] triage Social History Tobacco Use Types Packs/Day Years Used Date Smoking Tobacco: Every Day Cigarettes Smokeless Tobacco: Never Sex and Gender Information Value Date Recorded Sex Assigned at Male 03/12/2022 10:21 AM EDT Legal Sex Male 10:21 AM EDT Gender Identity Male 09/28/2023 1:08 AM EDT Sexual Orientation Straight 09/28/2023 1: 08 AM EDT COVID-19 Exposure Response Date Recorded In the last 10 days, have yo u been in contact with someone who was confirmed or suspected to have Coronavirus/COVID-19? No / Unsure 10/09/2022 11:56 AM EDT documented as of this encounter Miscellaneous Notes * Telephone Encounter - Marcela Odonnell RN - 10/09/2022 10:48 AM EDT Triage call Pt reports for a week now increased back pain, thought it was low back pain but, is specifically left flank pain at this time.Pt reports pain comes and goes and is increasing. If Pt does any kind of stretching side to side it aggravates the pain. Pt denies any urinary symptoms and has no hx of kidney stones. Pt is drinking adequate liquids. Pt is taking tylenol and/or motrin for pain.Advised Pt to come to [facility] to day to be seen and Pt agrees with disposition and home care reviewed Protocol Used: Flank Pain (Adult) Protocol-Based Disposition: See in Office or Video Visit Today Video visit not offered Positive Triage Question: * Moderate pain (e.g., interferes with normal activities or awakens from sleep) * All higher-acuity triage questions were negative Care Advice Discussed: * Reassurance and Education - Flank Pain * Use a Cold Pack for Pain * Use Heat After 48 Hours for Pain * Activity * Pain Medicines * Reasons To Call Back - Fever over 100.4 F (38.0 C) - Burning with urination or blood in urine - Pain lasts over 3 days - You become worse * Telephone Encounter - Drea Hernandez - 10/09/2022 10:13 AM EDT Symptom: Abdominal Pain - Male Outcome: Talk to a nurse or provider within 15 minutes Reason: Severe pain now The caller accepted this outcome Please contact pt at [phone] documented in this encounter Plan of Treatment Upcoming Encounters Date Type Department Care Team (Late st Contact Info) Description 06/18/2024 10:15 AM EST Office Visit [facility] MED & PEDS [address] [place] [address] Manny Shankar MD [address] [place] [address] documented as of this encounter Visit Diagnoses Not on filedocumented in this encounter Care Teams Regulator Inspector Relationship Specialty Start Date End Date Manny Shankar MD [address] [place] [address] PCP - General Internal Medicine 10/11/19 documented as of this encounter
--- OUTSIDE RECORDS SUMMARY | 2024-06-11 18:11 | XMS_ITS | Encounter Summary ---
Author Organization [employer] Address [address] [address] Care Team Providers Care Retinal Surgeon Name Role Phone Manny Shankar MD Primary Care Prov ider Reason for Visit * Reason Onset Date Comments triage 08/20/2022 Encounter Details Date Type Department Care Team (Late st Contact Info) Description 08/20/2022 Telephone [facility] MED & PEDS [address] [place] [address] Manny Shankar MD [address] [place] [address] triage Social History Tobacco Use Types Packs/Day Years Used Date Smoking Tobacco: Never Assessed Sex and Gender Information Value Date Recorded Sex Assigned at Male 03/12/2022 10:21 AM EDT Legal Sex Male 10:21 AM EDT Gender Identity Male 09/28/2023 1:08 AM EDT Sexual Orientation Straight 09/28/2023 1: 08 AM EDT documented as of this encounter Miscellaneous Notes * Telephone Encounter - Christina Freeman - 08/20/2022 1:56 PM EDT Symptom: Headache Outcome: Schedule a same-day appointment or talk to a nurse or provider today Reason: No high acuity concerns reported by caller The caller accepted this outcome documented in this encounter Plan of Treatment Upcoming Encounters Date Type Department Care Team (Late st Contact Info) Description 06/18/2024 10:15 AM EST Office Visit [facility] MED & PEDS [address] [place] [address] Manny Shankar MD [address] [place] [address] documented as of this encounter Visit Diagnoses Not on filedocumented in this encounter Care Teams Retinal Surgeon Relationship Specialty Start Date End Date Manny Shankar MD [address] [place] [address] PCP - General Internal Medicine 10/11/19 documented as of this encounter
[2024-06-11 18:20] LABS: PSA,Total (Free>4and<10) 0.61 ng/mL (0.00-4.00)
== END 2024-06-11 14:20 | disposition home or self-care (01) ==
LOC: HO.CHCLDS 14:19
PROVIDERS: Visit Provider Internal Medicine
DX: R33.9 Retention of urine, unspecified (principal); Z12.5 Encounter for screening for malignant neoplasm of prostate
CPT/HCPCS: 36415; 80048; 84153